=== PATIENT | female | born 1980 | race Caucasian/White ===

== ENCOUNTER 2017-10-30 17:15 | Emergency (ER) | payer BC, OTHER ==
[~2017-10-30] VITALS: Ht 157.5 cm; Wt 49.9 kg
[2017-10-30 17:15] VITALS: BP 127/71
== END 2017-10-30 17:49 | disposition home or self-care (01) ==
LOC: ER 17:20
DX: S80.211A Abrasion, right knee, initial encounter (principal); F17.200 Nicotine dependence, unspecified, uncomplicated; Z87.440 Personal history of urinary (tract) infections; Z90.89 Acquired absence of other organs; W18.39XA Other fall on same level, initial encounter; Y93.89 Activity, other specified; Y92.832 Beach as the place of occurrence of the external cause; Y99.8 Other external cause status
CPT/HCPCS: 99283; A4606; Z7610

== ENCOUNTER 2017-12-17 13:23 | Emergency (ER) | payer OTHER ==
[~2017-12-17] VITALS: Ht 162.6 cm; Wt 68.0 kg
--- NOTE | 2017-12-17 14:05 | NUR ---
AAOX3, c/o DYSURIA AND PAINFUL INTRCOURSE X 3 WEEKS BOYDFRIEND TESTED POSTIVE FOR CHLAMYDIA. RR is even and unlabored with NAD noted. Skin is warm and dry. Awaiting md for eval.
[2017-12-17] MEDS ORDERED: CEFTRIAXONE 500 MG VIAL ONE (14:28)
[2017-12-17] MEDS ORDERED: AZITHROMYCIN 250 MG TABLET ONE (14:28)
[2017-12-17] MEDS ORDERED: LIDOCAINE /MPF 1% VIAL 5 ML VIAL ONE (14:29)
[2017-12-17] MEDS ORDERED: LIDOCAINE HCL/PF 2 % 5ML SDV 5 ML VIAL ONE (14:29)
[2017-12-17] MEDS ORDERED: CEFTRIAXONE 500 MG VIAL IM ONE (14:30)
[2017-12-17] MEDS ORDERED: AZITHROMYCIN 250 MG TABLET PO ONE (14:30)
[2017-12-17 14:35] LABS: APPEARANCE,URINE Clear (CLEAR); BILIRUBIN,URINE Negative (NEGATIVE); BLOOD, URINE Small Ery/uL (NEGATIVE); COLOR,URINE Yellow (YELLOW); KETONES,URINE Negative (NEGATIVE); LEUKOCYTE ESTERASE ,URINE Negative (NEGATIVE); NITRITE, URINE Negative (NEGATIVE); PH,URINE 5.5 (5.0-8.0); PROTEIN,URINE Negative (NEGATIVE); UGLUCOSE Negative (NEGATIVE); UROBILINOGEN,URINE 0.2 EU/dL (0.2)
[2017-12-17 14:38] LABS: BACTERIA,URINE Few /HPF (None Seen); SQUAMOUS EPITHELIAL CELL,UR Few /HPF (None Seen); WBC,URINE 0-2 /HPF (0-3)
--- NOTE | 2017-12-17 15:14 | NUR ---
Patient discharged to home in stable condition. Written and verbal after care instructions given. Patient verbalizes understanding of instruction.
[2017-12-17 15:15] VITALS: BP 115/80
== END 2017-12-17 15:17 | disposition home or self-care (01) ==
LOC: ER 13:35
DX: R30.0 Dysuria (principal); Z20.2 Contact with and (suspected) exposure to infections with a predominantly sexual mode of transmission; F17.200 Nicotine dependence, unspecified, uncomplicated
CPT/HCPCS: 81001; 84703; 87491; 87591; 96372; 99284; A4606; J0696; J3490 ×2; Z7610; 81000-TC